=== PATIENT | male | born 1965 | race Two or more races ===

== ENCOUNTER 2021-05-27 12:39 | Outpatient (CLI) | payer OTHER | END 2021-05-27 12:45 | disposition home or self-care (01) | LOC: RAD 12:39 | PROVIDERS: ATTEND Orthopaedic Surgery | DX: S62.336A Displaced fracture of neck of fifth metacarpal bone, right hand, initial encounter for closed fracture (principal) ==

== ENCOUNTER 2021-06-21 08:44 | Outpatient (CLI) | payer OTHER | END 2021-06-21 08:56 | disposition home or self-care (01) | LOC: RAD 08:44 | PROVIDERS: ATTEND Orthopaedic Surgery | DX: S62.336A Displaced fracture of neck of fifth metacarpal bone, right hand, initial encounter for closed fracture (principal) ==